=== PATIENT | female | born 1945 | race Caucasian/White ===

== ENCOUNTER → 2016-06-11 | Outpatient (CLI) | payer MEDICARE | END | disposition home or self-care (01) | LOC: CFH 11:50 | PROVIDERS: ATTEND Urology | DX: N20.1 Calculus of ureter (principal); R13.0 Aphagia; I87.8 Other specified disorders of veins | CPT/HCPCS: 74000; 76770 ==

== ENCOUNTER → 2016-12-11 | Outpatient (CLI) | payer MEDICARE | END | disposition home or self-care (01) | LOC: CFH 13:20 | PROVIDERS: ATTEND Family Medicine | DX: Z12.31 Encounter for screening mammogram for malignant neoplasm of breast (principal) | CPT/HCPCS: 77063; G0202 ==